=== PATIENT | male | born 1955 ===

== ENCOUNTER 2016-08-11 17:44 | Emergency (ER) | payer OTHER ==
[2016-08-11 17:59] VITALS: BP 128/76
--- NOTE | 2016-08-11 19:02 | EDM.PDOC ---
ED HPI GENERAL MEDICAL PROBLEM - General Chief Complaint: Lower Extremity Injury/Pain Stated Complaint: HURT RIGHT FOOT Time Seen by Provider: 08/11/16 18:15 Source of Information: Reports: Patient History Limitations: Reports: No Limitations - History of Present Illness INITIAL COMMENTS - FREE TEXT/NARRATIVE: HISTORY AND PHYSICAL: History of present illness: [Patient comes to the emergency room complaining of right foot pain. He reports a crush injury while he was in the [employer] many many years ago. He's had 6 operations to his right foot and has developed arthritis. A couple of days ago patient was walking down the stairs and he noticed pain, swelling and bruising to his right foot. He did not fall or trip or injure his foot, but noticed bruising to the base of all toes, mild swelling throughout the top of his right foot and discomfort. He is tender with palpation over the dorsum of his right foot and the medial aspect. No tenderness over the lateral aspect of his right foot or bilateral malleolus. No numbness or tingling. No fever or chill, or other aches or pains.] Review of systems: As per history of present illness and below otherwise all systems reviewed and negative. Past medical history: As per history of present illness and as reviewed below otherwise noncontributory. Surgical history: As per history of present illness and as reviewed below otherwise noncontributory. Social history: No reported history of drug or alcohol abuse. Family history: As per history of present illness and as reviewed below otherwise noncontributory. Physical exam: HEENT: Atraumatic, normocephalic. Lungs: Clear to auscultation, breath sounds equal bilaterally Heart: S1S2, regular rate and rhythm. Extremities: Dorsum of R foot is mildly erythematous and mildly swollen. Light ecchymosis to base of toes. Is tender w/ palpation over dorsum of foot and medial aspect of R foot and ankle. negative for cords or calf pain. Neurovascular unremarkable. Neuro: Awake, alert, oriented. Motor and sensory unremarkable throughout. Exam nonfocal. Diagnostics: [Right foot x-ray] Impression: [R foot pain] Plan: [Discussed x-ray findings with the patient: Lucency around the screw within the distal phalanx may represent some loosening or less likely infection change. Otherwise osteoarthritis present. No fractures or other significant findings. Requested that patient have a CBC and uric acid completed based on x-ray results and the redness to his foot. Patient declines stating that he does not want to wait for these results and does not wish to have his blood drawn. States that he will follow-up with the ID clinic next week. Discussed with him the complications that may arise if he has an undiagnosed infection in his foot. Patient verbalized understanding of our conversation and signs out AMA. Of course we also reviewed that if he changes his mind and would like to come back to the ER if we'll be happy to take another look at his foot and droplet at that time.] Definitive disposition and diagnosis as appropriate pending reevaluation and review of above. right foot Pain Score (Numeric/FACES): 9 - Related Data Allergies Allergy/AdvReac Type Severity Reaction Status Date / Time amoxicillin Allergy Swelling Verified 08/11/16 17:54 Home Meds: Home Meds traMADol [Ultram] 0 cap PO ASDIRECTED 08/11/16 [History] Past Medical History - Past Health History Medical/Surgical History: Denies Medical/Surgical History Social & Family History - Family History Family Medical History: Noncontributory - Tobacco Use Smoking Status *Q: Current Every Day Smoker Years of Tobacco use: 40 Packs/Tins Daily: 1 - Caffeine Use Caffeine Use: Reports: Coffee Caffeine Use Comment: 4 cups daily - Recreational Drug Use Recreational Drug Use: No Review of Systems - Review of Systems Review Of Systems: ROS reveals no pertinent complaints other than HPI. ED EXAM, GENERAL - Physical Exam Exam: See Below Course - Vital Signs Last Recorded V/S: Last Vital Signs Temp 97.2 F 08/11/16 17:57 Pulse 63 08/11/16 17:57 Resp 16 08/11/16 17:57 BP 128/76 08/11/16 17:57 Pulse Ox 97 08/11/16 17:57 - Orders/Labs/Meds Orders: Active Orders 24 hr Category Date Time Status Foot 2V Rt [CR] Stat Exams 08/11/16 18:20 Taken Departure - Departure Time of Disposition: 19:30 Disposition: Against Medical Advice 07 Condition: Undetermined Clinical Impression: Right foot pain - Discharge Information Forms: ED Department Discharge - My Orders Last 24 Hours: My Active Orders 08/11/16 18:20 Foot 2V Rt [CR] Stat - Assessment/Plan Last 24 Hours: My Active Orders 08/11/16 18:20 Foot 2V Rt [CR] Stat
--- NOTE | 2016-08-14 10:03 | CR ---
EXAM DATE: 08/11/16 PATIENT'S AGE: 60 Patient: BENJIE HILL Facility: [place], [place] Site . Site : [id number] Study: XRay Extremity foot [id number]/23/2017 7:08:20 PM Ordering Physician: Doctor Mendez Final Report: Indication: Pain and swelling. Technique: Two views. Impression: Instrumented fusion interphalangeal joint great toe. Bony continuity. Thin collar of lucency around the screw within the distal phalanx may represent some loosening or less likely infection change. Mild osteoarthritis narrowing 1st metatarsophalangeal joint with low hallux valgus alignment. No other significant finding. Dictated by Abdiel Christopher MD @ Aug 11 2016 7:17PM (Electronic Signature) Report Signed by Proxy. SCOTT
== END 2016-08-11 19:26 | disposition left against medical advice (07) ==
LOC: MW.ED 17:44
DX: M79.671 Pain in right foot (principal); F17.210 Nicotine dependence, cigarettes, uncomplicated; Z88.1 Allergy status to other antibiotic agents
CPT/HCPCS: 73620-26-RT; 73620-RT; 99282; 99283